=== PATIENT | female | born 1960 | race Two or more races ===

== ENCOUNTER 2017-11-28 09:19 | Emergency (ER) | payer OTHER ==
[~2017-11-28] VITALS: Ht 157.5 cm; Wt 74.8 kg
[~2017-11-28 09:19] MED LIST: PREDNISONE20 MG PO
[2017-11-28] MEDS ORDERED: COZAAR25 MG (09:28)
[2017-11-28] MEDS ORDERED: ALBUTEROL0.63 MG/3 (09:28)
== END 2017-11-28 14:47 | disposition home or self-care (01) ==
LOC: ER 09:19
DX: J45.998 Other asthma (principal); J11.1 Influenza due to unidentified influenza virus with other respiratory manifestations

== ENCOUNTER 2017-12-03 12:29 | Outpatient (CLI) | payer OTHER ==
[~2017-12-03 12:29] MED LIST changes: +ALBUTEROL0.63 MG/3; +COZAAR25 MG
== END 2017-12-03 12:35 | disposition home or self-care (01) ==
LOC: MAMO-SONO 12:29
DX: Z12.31 Encounter for screening mammogram for malignant neoplasm of breast (principal); Z87.898 Personal history of other specified conditions; N62 Hypertrophy of breast

== ENCOUNTER 2017-12-12 20:34 | Inpatient (IN) | payer OTHER ==
[~2017-12-12] VITALS: Ht 157.5 cm; Wt 74.8 kg
[2017-12-12] MEDS ORDERED: SYNTHROID50 MCG (20:46)
[2017-12-12] MEDS ORDERED: SINGULAIR4 MG (20:46)
[2017-12-12] MEDS ORDERED: CLONAZEPAM0.5 M1 (20:47)
[2017-12-12] MEDS ORDERED: COZAAR25 MG (20:47)
[2017-12-12] MEDS ORDERED: CELEXA10 MG (20:47)
[2017-12-12] MEDS ORDERED: RESTORIL30 M1 (20:48)
== END 2017-12-20 09:55 | disposition home or self-care (01) | DRG 202 ==
LOC: ER 20:34 → SEC-K 12-13 07:44 → MEDI 12-13 07:44
PROC: 3E0F7GC Introduction of Other Therapeutic Substance into Respiratory Tract, Via Natural or Artificial Opening (ICD-10-PCS; principal; 2017-12-13)
DX: J45.31 Mild persistent asthma with (acute) exacerbation (principal); B37.0 Candidal stomatitis; G47.33 Obstructive sleep apnea (adult) (pediatric); J06.0 Acute laryngopharyngitis

== ENCOUNTER → 2018-01-29 | Emergency (ER) | payer OTHER ==
[~2018-01-29] VITALS: Ht 157.5 cm; Wt 74.8 kg
[~2018-01-29] MED LIST changes: +CELEXA10 MG; +CLONAZEPAM0.5 M1; +RESTORIL30 M1; +SINGULAIR4 MG; +SYNTHROID50 MCG
== END | disposition left against medical advice (07) ==
LOC: ER 23:40
DX: Z53.20 Procedure and treatment not carried out because of patient's decision for unspecified reasons (principal)

== ENCOUNTER 2018-01-30 11:40 | Emergency (ER) | payer OTHER ==
[~2018-01-30] VITALS: Ht 157.5 cm; Wt 74.8 kg
== END 2018-01-30 18:41 | disposition home or self-care (01) ==
LOC: ER 11:40
DX: K29.60 Other gastritis without bleeding (principal); J32.0 Chronic maxillary sinusitis

== ENCOUNTER 2018-02-13 10:50 | Outpatient (CLI) | payer OTHER | END 2018-02-13 17:54 | disposition home or self-care (01) | LOC: NUCLEAR 10:50 | DX: M81.0 Age-related osteoporosis without current pathological fracture (principal) ==

== ENCOUNTER 2018-06-19 12:34 | Emergency (ER) | payer OTHER ==
[~2018-06-19] VITALS: Ht 157.5 cm; Wt 77.1 kg
== END 2018-06-19 17:13 | disposition home or self-care (01) ==
LOC: ER 12:34
DX: M25.512 Pain in left shoulder (principal)

== ENCOUNTER 2018-07-10 06:47 | Emergency (ER) | payer OTHER ==
[~2018-07-10] VITALS: Ht 154.9 cm; Wt 76.7 kg
[2018-07-10] MEDS ORDERED: CLONAZEPAM1 MG (07:03)
[2018-07-10] MEDS ORDERED: SYMBICORT 16010.2 GM (07:03)
[2018-07-10] MEDS ORDERED: ALBUTEROL0.63 MG/3 (07:03)
[2018-07-10] MEDS ORDERED: CELEXA10 MG (07:04)
== END 2018-07-10 12:12 | disposition home or self-care (01) ==
LOC: ER 06:47
DX: J06.9 Acute upper respiratory infection, unspecified (principal); J11.1 Influenza due to unidentified influenza virus with other respiratory manifestations

== ENCOUNTER 2019-01-19 08:31 | Outpatient (CLI) | payer OTHER ==
[~2019-01-19 08:31] MED LIST changes: +CLONAZEPAM1 MG; +SYMBICORT 16010.2 GM
== END 2019-01-19 08:41 | disposition home or self-care (01) ==
LOC: TOM 08:31
DX: J44.9 Chronic obstructive pulmonary disease, unspecified (principal)
CPT/HCPCS: 71260; Q9965

== ENCOUNTER 2019-01-19 09:09 | Outpatient (CLI) | payer OTHER | END 2019-01-19 09:16 | disposition home or self-care (01) | LOC: LAB 09:09 | DX: N20.0 Calculus of kidney (principal) ==

== ENCOUNTER 2020-08-09 12:38 | Outpatient (CLI) | payer OTHER | END 2020-08-09 12:46 | disposition HB | LOC: RAD 12:38 | PROVIDERS: ATTEND Internal Medicine Cardiovascular Disease | DX: M77.31 Calcaneal spur, right foot (principal); M12.871 Other specific arthropathies, not elsewhere classified, right ankle and foot ==

== ENCOUNTER 2020-10-14 13:10 | Outpatient (CLI) | payer OTHER | END 2020-10-14 13:28 | disposition home or self-care (01) | LOC: MAMO-SONO 13:10 | PROVIDERS: ATTEND Internal Medicine Cardiovascular Disease | DX: Z12.31 Encounter for screening mammogram for malignant neoplasm of breast (principal); Z87.898 Personal history of other specified conditions; N63.11 Unspecified lump in the right breast, upper outer quadrant ==

== ENCOUNTER 2021-02-16 14:23 | Outpatient (CLI) | payer OTHER | END 2021-02-16 14:30 | disposition home or self-care (01) | LOC: RAD 14:23 | PROVIDERS: ATTEND Internal Medicine Cardiovascular Disease | DX: M77.32 Calcaneal spur, left foot (principal); M77.31 Calcaneal spur, right foot ==

== ENCOUNTER 2021-03-28 14:04 | Outpatient (CLI) | payer OTHER | END 2021-03-28 14:05 | disposition home or self-care (01) | LOC: SONOGRAMA 14:04 | PROVIDERS: ATTEND Internal Medicine Cardiovascular Disease | DX: M72.2 Plantar fascial fibromatosis (principal); M12.88 Other specific arthropathies, not elsewhere classified, other specified site ==

== ENCOUNTER 2023-01-22 10:36 | Outpatient (CLI) | payer OTHER | END 2023-01-22 10:42 | disposition home or self-care (01) | LOC: RAD 10:36 | PROVIDERS: ATTEND Urology | DX: Z01.811 Encounter for preprocedural respiratory examination (principal); N20.1 Calculus of ureter ==

== ENCOUNTER 2023-08-13 09:46 | Outpatient (CLI) | payer OTHER | END 2023-08-13 09:48 | disposition home or self-care (01) | LOC: RAD 09:46 | PROVIDERS: ATTEND Internal Medicine Pulmonary Disease | DX: J44.1 Chronic obstructive pulmonary disease with (acute) exacerbation (principal) ==

== ENCOUNTER 2024-11-26 10:34 | Outpatient (CLI) | payer OTHER | END 2024-11-26 10:42 | disposition home or self-care (01) | LOC: MAMO-SONO 10:34 | PROVIDERS: ATTEND Internal Medicine Cardiovascular Disease | DX: N60.11 Diffuse cystic mastopathy of right breast (principal); N60.12 Diffuse cystic mastopathy of left breast; Z12.31 Encounter for screening mammogram for malignant neoplasm of breast ==

== ENCOUNTER 2024-12-16 08:51 | Outpatient (CLI) | payer OTHER | END 2024-12-16 08:52 | disposition home or self-care (01) | LOC: NUCLEAR 08:51 | PROVIDERS: ATTEND Internal Medicine Cardiovascular Disease | DX: M81.0 Age-related osteoporosis without current pathological fracture (principal) ==